=== PATIENT | male | born 1985 | race Asian ===

== ENCOUNTER 2023-02-11 08:00 | Outpatient (CLI) | payer OTHER | END 2023-02-11 08:01 | disposition home or self-care (01) | LOC: ULT 08:00 | PROVIDERS: ATTEND Internal Medicine Gastroenterology | DX: R10.11 Right upper quadrant pain (principal); K76.0 Fatty (change of) liver, not elsewhere classified | CPT/HCPCS: 76705 ==

== ENCOUNTER 2023-08-29 13:14 | Outpatient (CLI) | payer OTHER | END 2023-08-29 13:15 | disposition home or self-care (01) | LOC: NM 13:14 | PROVIDERS: ATTEND Physician Assistant Medical | DX: K76.0 Fatty (change of) liver, not elsewhere classified (principal); R10.11 Right upper quadrant pain; K64.8 Other hemorrhoids | CPT/HCPCS: 78227; A9537 ==

== ENCOUNTER 2023-09-01 08:09 | Outpatient (CLI) | payer OTHER ==
[2023-09-01] MEDS ORDERED: Iopamidol 370 76% 100 ML VIAL ONE (09:15)
== END 2023-09-01 08:10 | disposition home or self-care (01) ==
LOC: CT 08:09
PROVIDERS: ATTEND Physician Assistant Medical
DX: R10.11 Right upper quadrant pain (principal); K76.0 Fatty (change of) liver, not elsewhere classified; K64.8 Other hemorrhoids
CPT/HCPCS: 74177